=== PATIENT | female | born 1990 | race African-American/Black ===

== ENCOUNTER 2021-06-20 16:38 | Emergency (ER) | payer MEDICAID ==
[~2021-06-20] VITALS: Ht 170.2 cm; Wt 82.0 kg
[2021-06-20 16:40] VITALS: BP 144/111
[2021-06-20] MEDS ORDERED: TETANUS, DIPHTHERIA, PERTUSSIS VAC/PF 0.5ML (>7YR OLD) IM ONE (18:45)
[2021-06-20] MEDS ORDERED: BACITRACIN ZINC OINT UDPKT TOP NR (19:15)
[2021-06-20] MEDS ORDERED: LIDOCAINE HCL 1% 20ML VIAL (Pyxis) INJ INFIL ONE (19:30)
[2021-06-20] MEDS ORDERED: ACETAMINOPHEN 500MG TABLET PO ONE (20:00)
== END 2021-06-20 22:00 | disposition home or self-care (01) ==
LOC: ER 16:38
DX: S61.210A Laceration without foreign body of right index finger without damage to nail, initial encounter (principal); X58.XXXA Exposure to other specified factors, initial encounter; Y93.89 Activity, other specified; Y92.89 Other specified places as the place of occurrence of the external cause; Y99.8 Other external cause status
CPT/HCPCS: 12001; 73140; 81025; 90471; 90715; 99283; J3490